=== PATIENT | male | born 1955 | race Caucasian/White ===

== ENCOUNTER 2020-02-10 06:56 | Day surgery (SDC) | payer MEDICARE ==
[2020-02-09 08:48] VITALS: BP 118/85
[~2020-02-10] VITALS: Ht 182.9 cm; Wt 82.0 kg
[~2020-02-10 06:56] MED LIST: PRAV40TA2 PO
[2020-02-10] MEDS ORDERED: LACTATED RINGERS 1,000 ML IV SCH (07:43)
[2020-02-10 07:44] VITALS: BP 118/85
[2020-02-10] MEDS ORDERED: CHLORHEXIDINE 15 ML UDC ONE (07:51)
[2020-02-10] MEDS ORDERED: CHLORHEXIDINE 15 ML UDC MM ONE (08:00)
[2020-02-10] MEDS ORDERED: ONDANSETRON 2MG/ML, 2ML ONE ×2 (09:14→11:15)
[2020-02-10] MEDS ORDERED: GLYCOPYRROLATE 0.2MG/1ML, 5ML ONE (09:14)
[2020-02-10] MEDS ORDERED: DEXAMETHASONE 4 MG/ML, 1ML ONE (09:14)
[2020-02-10] MEDS ORDERED: CEFAZOLIN 1,000 MG ONE (09:14)
[2020-02-10] MEDS ORDERED: EPHEDRINE 50 MG/ML, 1ML ONE (09:14)
[2020-02-10] MEDS ORDERED: MIDAZOLAM 1 MG/ML, 2ML ONE (09:37)
[2020-02-10] MEDS ORDERED: FENTANYL PF 250 MCG/5ML ONE (09:38)
[2020-02-10] MEDS ORDERED: OPIUM/BELLADONNA SUPP.RECT 16.2-60 MG ONE (10:15)
[2020-02-10] MEDS ORDERED: PROMETHAZINE 12.5 MG SUPP PR PRN (10:30)
[2020-02-10] MEDS ORDERED: PROMETHAZINE 25 MG/ML, 1ML IVPush PRN (10:30)
[2020-02-10] MEDS ORDERED: HYDROmorphone 1 MG/ML, 1ML INJ IVPush PRN (10:30)
[2020-02-10] MEDS ORDERED: EPHEDRINE 50 MG/ML, 1ML IVPush PRN (10:30)
[2020-02-10] MEDS ORDERED: OXYcodone 5 MG/5 ML ORAL.SOL UDC PO PRN (10:30)
[2020-02-10] MEDS ORDERED: ONDANSETRON 2MG/ML, 2ML IVPush PRN (10:30)
[2020-02-10] MEDS ORDERED: ALBUTEROL SULFATE 2.5 MG/3 ML NPPB PRN (10:30)
[2020-02-10] MEDS ORDERED: MIDAZOLAM 1 MG/ML, 2ML IV PRN (10:30)
[2020-02-10] MEDS ORDERED: ACETAMINOPHEN 325 MG TABLET PO PRN (10:30)
[2020-02-10] MEDS ORDERED: hydrALAzine 20 MG/ML, 1ML IV PRN (10:30)
[2020-02-10] MEDS ORDERED: MEPERIDINE/PF 25MG/0.5ML IVPush PRN (10:30)
[2020-02-10] MEDS ORDERED: DIAZEPAM 5 MG/ML, 2ML IVPush PRN (10:30)
[2020-02-10] MEDS ORDERED: LABETALOL 5MG/ML, 20ML IV PRN (10:30)
[2020-02-10] MEDS ORDERED: DIPHENHYDRAMINE 50 MG/ML, 1ML IVPush PRN (10:30)
[2020-02-10] MEDS ORDERED: ROCURONIUM 10MG/ML,5ML ONE (11:15)
[2020-02-10] MEDS ORDERED: PROPOFOL 10 MG/ML, 20ML ONE (11:15)
[2020-02-10] MEDS ORDERED: SUCCINYLCHOLINE 20 MG/ML, 10ML ONE (11:15)
[2020-02-10] MEDS ORDERED: FENTANYL PF 100 MCG/2ML ONE (11:51)
[2020-02-10] MEDS: FENTANYL PF 100 MCG/2ML IV PRN ×4 (11:54→12:16)
[2020-02-10] MEDS ORDERED: ACETAMINOPHEN 650 MG/20.3 ML UDC ONE (12:00)
[2020-02-10] MEDS ORDERED: OXYcodone 5 MG/5 ML ORAL.SOL UDC ONE (12:00)
== END 2020-02-10 14:25 | disposition home or self-care (01) ==
LOC: OUT 06:56
PROVIDERS: ATTEND Urology
DX: N40.1 Benign prostatic hyperplasia with lower urinary tract symptoms (principal); R33.8 Other retention of urine; N32.89 Other specified disorders of bladder; E78.5 Hyperlipidemia, unspecified; Z79.899 Other long term (current) drug therapy; Z72.89 Other problems related to lifestyle; Z98.52 Vasectomy status; Z98.890 Other specified postprocedural states; Z80.42 Family history of malignant neoplasm of prostate
CPT/HCPCS: 52648; J0330; J0690; J1100; J2250; J2405; J2704; J3010; J7120